=== PATIENT | female | born 1960 | race Caucasian/White ===

== ENCOUNTER 2017-06-04 20:44 | Emergency (ER) | payer OTHER ==
[~2017-06-04] VITALS: Ht 152.4 cm; Wt 74.8 kg
[2017-06-04 21:17] LABS: ABSOLUTE EOSINOPHILS 0.2 thou/uL (0.0-0.7); ABSOLUTE LYMPHOCYTES 2.1 thou/uL (0.8-5.3); ABSOLUTE MONOCYTES 0.4 thou/uL (0.0-1.2); ABSOLUTE NEUTROPHILS 2.5 thou/uL (1.6-8.1); BASOPHILS 0.7 %; EOSINOPHILS 4.2 %; HEMATOCRIT 41.8 % (37.0-47.0); HEMOGLOBIN 14.1 gm/dL (12.0-15.0); MCH 30.2 pg (26.0-34.0); MCHC 33.7 g/dL (28.0-37.0); MCV 89.5 fL (80.0-100.0); MONOCYTES 7.6 %; MPV 9.7 fl. (7.2-11.1); NUCLEATED RBCS 0 /100WBC; PLATELET COUNT* 186 thou/uL (150-400); POLYS 47.5 %; RBC 4.67 mil/uL (4.20-5.00); RDW-CV 13.5 % (10.5-14.5); WBC 5.2 thou/uL (4.0-11.0)
[2017-06-04 21:25] LABS: ANION GAP 8 mmol/L (7-16); BUN 14 mg/dL (7-18); CALCIUM 9.9 mg/dL (8.5-10.1); CHLORIDE 102 mmol/L (98-107); CO2 30 mmol/L (21-32); CREATININE 0.9 mg/dL (0.6-1.3); GLUCOSE 101 mg/dL (70-99); POTASSIUM 3.7 mmol/L (3.5-5.1); SODIUM 140 mmol/L (136-145)
[2017-06-04 21:32] LABS: ALBUMIN 3.5 g/dL (3.4-5.0); ALKALINE PHOSPHATASE 137 U/L (46-116); LIPASE 135 U/L (73-393); SGOT 23 U/L (15-37); SGPT 32 U/L (30-65); TOTAL BILIRUBIN 0.6 mg/dL (<0.1-1.0); TROPONIN-I LEVEL <0.06 ng/mL (<0.06)
[2017-06-04 22:00] LABS: URINE BILIRUBIN NEGATIVE (Negative); URINE BLOOD NEGATIVE (Negative); URINE CLARITY CLEAR; URINE COLOR YELLOW; URINE GLUCOSE-RANDOM NEGATIVE (Negative); URINE KETONES NEGATIVE (Negative); URINE LEUKOCYTES-REFLEX NEGATIVE (Negative); URINE NITRITE-REFLEX NEGATIVE (Negative); URINE PROTEIN NEGATIVE (Negative); URINE UROBILINOGEN 0.2 E.U./dl (0.2-1.0)
[2017-06-04 22:09] LABS: AMP/METHAMP POSITIVE (Negative); BARBITURATES Negative (Negative); BENZODIAZEPINES Negative (Negative); COCAINE Negative (Negative); METHADONE Negative (Negative); OPIATES Negative (Negative); PCP Negative (Negative); THC POSITIVE (Negative)
[2017-06-04] MEDS ORDERED: ZOFRAN ODT4 MG PO (23:06)
[2017-06-04] MEDS ORDERED: ANTIVERT25 MG PO (23:06)
[2017-06-04 23:15] VITALS: BP 161/73
--- NOTE | 2017-06-05 15:26 | EKG ---
[place] [address] ELECTROCARDIOGRAM REPORT Name: DON BAUTISTA Room: [facility]#: [id number] Admission: 06/04/17 Attend Phys: Discharge: 06/04/17 Date of : 60 Report #: [id number] THIS REPORT FOR: //name// [facility] ED Test Date: 2017-06-04 Test Time: 21:20:36 Pat Name: DON BAUTISTA Department: Room: Gender: F Unit Technician: DAMIAN Rapp : 1960 Requested By: Dianelys Estevez Order Number: [id number] MD: William Bhakta Measurements Intervals [place] Rate: 66 P: -21 MS: 150 QRS: -23 QRSD: 95 T: 19 QT: 405 QTc: 425 Interpretive Statements Sinus rhythm Borderline left axis deviation Anteroseptal infarct, age indeterminate No previous ECG available for comparison Electronically Signed On 06-05-2017 15:25:59 [employer] by William Bhakta [email or web address] <ELECTRONICALLY SIGNED> By: William Bhakta MD, [facility] 06/05/17 1525 19 19 William Bhakta MD, FAC /EPI
== END 2017-06-04 23:17 | disposition home or self-care (01) ==
LOC: M.ERS 20:44
PROVIDERS: Physician Assistant
DX: R42 Dizziness and giddiness (principal); Z88.1 Allergy status to other antibiotic agents

== ENCOUNTER 2019-07-01 07:41 | Inpatient (IN) | payer OTHER ==
[~2019-07-01] VITALS: Ht 152.4 cm; Wt 91.6 kg
--- NOTE | ~2019-07-01 | CON ---
[address] [address] CONSULTATION Name: DON BAUTISTA Room: [address] IN [facility]#: [id number] Admission: 07/01/19 Attend Phys: Alexi Rivera Discharge: Date of : 60 Report #: [id number] THIS REPORT FOR: //name// cc: RAZ Fermin family physician/PCP RAZ Fermin family physician/PCP ~ THIS REPORT FOR: //name// CC: RAZ physician/PCP Alexi Bolanos HISTORY OF PRESENT ILLNESS: This is a pleasant 59-year-old female with past medical history of prediabetes, obesity, and gastroesophageal reflux disease who is presenting for evaluation. The patient reports intermittent epigastric discomfort for the last few months. The pain seems to be worse after eating food. There is no specific relationship to bowel movements. She denies any significant pain, nausea, vomiting, hematemesis, hematochezia, weight loss or other alarm symptoms. The GI service has been consulted for iron deficiency anemia that was noted during the admission. The patient does report intermittent vaginal bleeding. PAST MEDICAL HISTORY: Nonsignificant. PAST SURGICAL HISTORY: The patient had a cholecystectomy. SOCIAL HISTORY: She denies smoking, alcohol or recreational drug use, but she quit smoking recently and reports about a 10-pound weight gain since then. FAMILY HISTORY: No family history of colon cancer or Smith related neoplasia. PHYSICAL EXAMINATION: VITAL SIGNS: Temperature 36.8, pulse rate 79, blood pressure 129/50, pulse ox 99% on room air. GENERAL: The patient is alert, awake, oriented x 3. HEENT: Pupils are equal, round, reactive to light and accommodation. Mucous membranes are moist. There is no congestion. LUNGS: Clear to auscultation bilaterally. CARDIOVASCULAR: Rate and rhythm regular. S1, S2 present. ABDOMEN: Soft. There is no distention, guarding or rigidity. EXTREMITIES: Warm and well perfused. There is no edema. SKIN: Warm and dry. LABORATORY DATA: Hemoglobin on presentation 6.3, hematocrit 20.4, platelet count 316,000. WBC count 5.8. INR 1.1. Sodium 142, potassium 4.1, chloride 108, bicarbonate 27, BUN 10, creatinine 0.9. Iron saturation 2%. Total bilirubin 0.3, AST 21, ALT 26, alkaline phosphatase 133. ASSESSMENT AND PLAN: Pleasant 59-year-old female with severe iron deficiency anemia, no history of endoscopic evaluation. We will proceed with EGD and colonoscopy tomorrow, put the patient on clear liquid diet today. Further recommendations will be based on the results of the endoscopy. By: 1202 [id number] Jones MD /geronimo
--- NOTE | ~2019-07-01 | PROC ---
[address] [address] PROCEDURE REPORT Name: DON BAUTISTA Room: [address] IN .R.#: [id number] Admission: 07/01/19 Attend Phys: Alexi Rivera Discharge: 07/05/19 Date of : 60 Report #: [id number] THIS REPORT FOR: //name// cc: RAZ - No family physician/PCP FAM - No family physician/PCP ~ THIS REPORT FOR: //name// For GI report, please see the Provation report in Perceptive 7 content. By: 1244Medical Records Staff [facility] /JOSEPH
--- NOTE | ~2019-07-01 | EKG ---
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
[~2019-07-01 07:41] MED LIST: ANTIVERT25 MG PO; ZOFRAN ODT4 MG PO
[2019-07-01 07:43] VITALS: BP 120/63
[2019-07-01] MEDS ORDERED: OMEPRAZOLE 20 M20 M1 PO (07:49)
[2019-07-01 08:11] LABS: ABSOLUTE EOSINOPHILS 0.2 thou/uL (0.0-0.7); ABSOLUTE LYMPHOCYTES 2.1 thou/uL (0.8-5.3); ABSOLUTE MONOCYTES 0.3 thou/uL (0.0-1.2); ABSOLUTE NEUTROPHILS 3.1 thou/uL (1.6-8.1); BASOPHILS 0.7 %; EOSINOPHILS 3.6 %; HEMATOCRIT 20.4 % (37.0-47.0); LYMPHOCYTES 36.8 %; MCHC 30.9 g/dL (28.0-37.0); MCV 67.8 fL (80.0-100.0); MONOCYTES 5.9 %; MPV 7.7 fl. (7.2-11.1); NUCLEATED RBCS 0 /100WBC; PLATELET COUNT* 316 thou/uL (150-400); RBC 3.02 mil/uL (4.20-5.00); RDW-CV 18.9 % (10.5-14.5); WBC 5.8 thou/uL (4.0-11.0)
[2019-07-01 08:12] LABS: HEMOGLOBIN 6.3 gm/dL (12.0-15.0)
[2019-07-01 08:18] LABS: CALCIUM 8.1 mg/dL (8.5-10.1); CREATININE 1.2 mg/dL (0.6-1.3); POTASSIUM 3.5 mmol/L (3.5-5.1)
[2019-07-01 08:28] LABS: ALBUMIN 3.3 g/dL (3.4-5.0); MAGNESIUM 1.9 mg/dL (1.8-2.4); TOTAL BILIRUBIN 0.3 mg/dL (<0.1-1.0); TOTAL PROTEIN 6.9 g/dL (6.4-8.2)
[2019-07-01 08:43] LABS: ANISOCYTOSIS 1+; HYPOCHROMASIA 2+; MICROCYTES 2+; PLATELET ESTIMATE ADEQUATE
[2019-07-01 12:46] LABS: CHOLESTEROL 178 mg/dL (<200); HDL CHOLESTEROL 51 mg/dL (>40); LDL CHOLESTEROL 107 mg/dL (<100); MAGNESIUM 1.9 mg/dL (1.8-2.4); SERUM ASSESSMENT CLEAR; TC:HDL 3.5 Ratio (Not establshd); TRIGLYCERIDE 103 mg/dL (<150); VLDL 21 mg/dL (<40)
[2019-07-01 13:54] LABS: HEMATOCRIT 23.8 % (37.0-47.0); HEMOGLOBIN 7.5 gm/dL (12.0-15.0)
[2019-07-01 14:04] VITALS: BP 151/70
[2019-07-01 14:58] VITALS: BP 148/72
[2019-07-01 15:10] VITALS: BP 134/69
--- NOTE | 2019-07-01 16:42 | 2DMMODE ---
[place] [address] 2 D/M-MODE ECHOCARDIOGRAM Name: DON BAUTISTA Tiffany Room: [address] IN .R.#: [id number] Admission: 07/01/19 Attend Phys: Alexi kaiser Sa Discharge: Date of : 60 Date of Service: 07/01/19 1641 Report #: [id number] THIS REPORT FOR: cc: RAZ - No family physician/PCP RAZ - No family physician/PCP Mariusz Chance MD [facility] THIS REPORT FOR: //name// APPROVED REPORT Study performed: 07/01/2019 15:14:26 EXAM: Comprehensive 2D, Doppler, and color-flow Echocardiogram Patient Location: Bedside BSA: 1.85 HR: 80 bpm BP: 151/70 mmHg Other Information Study Quality: Fair Indications Chest Pain 2D Dimensions IVSd: 13.39 (7-11mm) LVOT Diam: 18.26 (18-24mm) LVDd: 40.96 mm PWd: 10.97 (7-11mm) Ascending Ao: 25.97 (22-36mm) LVDs: 30.05 (25-40mm) Aortic Root: 26.06 mm Volumes Left Atrial Volume (Systole) LA ESV Index: 42.50 mL/m2 Aortic Valve AoV Peak Erik.: 1.65 m/s AO Peak Gr.: 10.89 mmHg LVOT Max P.52 mmHg AO Mean Gr.: 6.01 mmHg LVOT Mean P.88 mmHg LVOT Max V: 0.94 m/s AO V2 VTI: 32.67 cm LVOT Mean V: 0.64 m/s GUILLERMO (VTI): 1.59 cm2 LVOT V1 VTI: 19.90 [place] [address] 2 D/M-MODE ECHOCARDIOGRAM Name: DON BAUTISTA Room: [address] IN [facility]#: [id number] Admission: 07/01/19 Attend Phys: Alexi kaiser Sa Discharge: Date of : 60 Date of Service: 07/01/19 1641 Report #: [id number] Mitral Valve E/A Ratio: 1.07 MV Decel. Time: 238.27 ms MV E Max Erik.: 1.10 m/s MV PHT: 69.10 ms MVA (PHT): 3.18 cm2 TDI E/Lateral E': 13.75 E/Medial E': 12.22 Medial E' Erik.: 0.09 m/s Lateral E' Erik.: 0.08 m/s Pulmonary Valve PV Peak Erik.: 1.22 m/s PV Peak Gr.: 5.95 mmHg Tricuspid Valve RAP Estimate: 5.00 mmHg TR Peak Gr.: 29.98 mmHg RVSP: 34.98 mmHg PA Pressure: 34.98 mmHg Left Ventricle The left ventricle is normal size. There is normal LV segmental wall motion. Mild concentric left ventricular hypertrophy. Left ventricular systolic function is normal. The left ventricular ejection fraction is within the normal range. LVEF is 60-65%. Grade I - abnormal relaxation pattern. Right Ventricle The right ventricle is normal size. The right ventricular systolic function is normal. Atria Left atrium is mildly dilated. The right atrium size is normal. Aortic Valve The aortic valve is normal in structure. No aortic regurgitation is present. There is no aortic valvular stenosis. Mitral Valve The mitral valve is normal in structure. There is no mitral valve regurgitation noted. No evidence of mitral valve stenosis. Tricuspid Valve The tricuspid valve is normal in structure. Trace tricuspid regurgitation. estimated pa pressure 35 [place] [address] 2 D/M-MODE ECHOCARDIOGRAM Name: DON BAUTISTA Room: [address]#: [id number] Admission: 07/01/19 Attend Phys: Alexi kaiser Sa Discharge: Date of : 60 Date of Service: 07/01/19 1641 Report #: [id number] Pulmonic Valve Pulmonic valve is not well visualized. There is no pulmonic valvular regurgitation. Great Vessels The aortic root is normal in size. IVC is normal in size and collapses >50% with inspiration. Pericardium There is no pericardial effusion. <Conclusion> Mild concentric left ventricular hypertrophy. LVEF is 60-65%. Left atrium is mildly dilated. <ELECTRONICALLY SIGNED> By: Mariusz Chance MD, FACC 07/01/191640 40 40 Mariusz Chance MD, FACC /INF
[2019-07-01 19:50] VITALS: BP 134/58
[2019-07-02] VITALS (7 sets, daily range): BP systolic 119–142; BP diastolic 50–81
[2019-07-02 02:10] LABS: GLYCOHEMOGLOBIN (HGB A1C) 6.2 % (4.8-5.6)
[2019-07-02 04:59] LABS: HEMATOCRIT 23.2 % (37.0-47.0); HEMOGLOBIN 7.3 gm/dL (12.0-15.0); MCH 22.7 pg (26.0-34.0); MCHC 31.7 g/dL (28.0-37.0); MCV 71.6 fL (80.0-100.0); MPV 7.5 fl. (7.2-11.1); RBC 3.23 mil/uL (4.20-5.00); RDW-CV 21.9 % (10.5-14.5); WBC 6.8 thou/uL (4.0-11.0)
[2019-07-02 05:09] LABS: CALCIUM 7.8 mg/dL (8.5-10.1); CREATININE 0.9 mg/dL (0.6-1.3); POTASSIUM 4.1 mmol/L (3.5-5.1)
[2019-07-03] VITALS (7 sets, daily range): BP systolic 113–160; BP diastolic 51–64
[2019-07-04 00:55] VITALS: BP 154/78
[2019-07-04 04:00] VITALS: BP 159/66
[2019-07-04 06:05] LABS: AMP/METHAMP POSITIVE (Negative); BARBITURATES Negative (Negative); BENZODIAZEPINES Negative (Negative); COCAINE Negative (Negative); METHADONE Negative (Negative); OPIATES POSITIVE (Negative); PCP Negative (Negative); THC Negative (Negative)
[2019-07-04 06:13] LABS: ABSOLUTE EOSINOPHILS 0.2 thou/uL (0.0-0.7); ABSOLUTE LYMPHOCYTES 1.2 thou/uL (0.8-5.3); ABSOLUTE MONOCYTES 0.5 thou/uL (0.0-1.2); ABSOLUTE NEUTROPHILS 8.1 thou/uL (1.6-8.1); BASOPHILS 0.5 %; EOSINOPHILS 1.5 %; HEMATOCRIT 24.2 % (37.0-47.0); HEMOGLOBIN 7.8 gm/dL (12.0-15.0); MCH 23.3 pg (26.0-34.0); MCHC 32.1 g/dL (28.0-37.0); MCV 72.5 fL (80.0-100.0); MONOCYTES 4.6 %; MPV 7.8 fl. (7.2-11.1); NUCLEATED RBCS 0 /100WBC; PLATELET COUNT* 289 thou/uL (150-400); POLYS 81.4 %; RBC 3.34 mil/uL (4.20-5.00); RDW-CV 22.1 % (10.5-14.5); WBC 9.9 thou/uL (4.0-11.0)
[2019-07-04 06:30] LABS: CALCIUM 8.1 mg/dL (8.5-10.1); CREATININE 0.8 mg/dL (0.6-1.3); POTASSIUM 3.7 mmol/L (3.5-5.1)
[2019-07-04 07:24] LABS: PLATELET ESTIMATE ADEQUATE
[2019-07-04 07:25] LABS: ANISOCYTOSIS 1+; HYPOCHROMASIA 1+; MICROCYTES 1+; OVALOCYTES 1+; POIKILOCYTOSIS 1+; POLYCHROMASIA 1+
[2019-07-04 08:00] VITALS: BP 178/79
[2019-07-04 15:20] VITALS: BP 150/69
[2019-07-04 15:36] VITALS: BP 118/50
[2019-07-04 20:00] VITALS: BP 145/65
[2019-07-05] VITALS: BP 150/62
[2019-07-05 04:00] VITALS: BP 155/64
[2019-07-05 08:00] VITALS: BP 142/75
--- NOTE | 2019-07-05 10:53 | CON ---
[address] [address] CONSULTATION Name: DON ABUTISTA Tiffany Room: [address] IN ..#: [id number] Admission: 07/01/19 Attend Phys: Alexi Rivera Discharge: Date of : 60 Report #: [id number] THIS REPORT FOR: //name// cc: RAZ Fermin family physician/PCP RAZ Fermin family physician/PCP ~ THIS REPORT FOR: //name// CC: RAZ physician/PCP Alexi Bolanos DATE OF SERVICE: 07/01/2019 CARDIOLOGY CONSULTATION HISTORY OF PRESENT ILLNESS: The patient is a 59-year-old female who I was asked to see in the Emergency Room today after she complained of chest pain. The patient has no previous history of heart disease. She has been told in the past that she has anemia. Recently, she noticed shortness of breath when she exerts herself. She has had some edema. She also notes in the past several weeks, she has had pressure in the left side of chest behind her left breast. It is not related to exertion or meals. There is no radiation of the pain. She has had no blood in her stool or vomiting. She has had no cough or fever. Because of chest discomfort, her brought her to the Emergency Room, and she was admitted for further evaluation and treatment. PAST MEDICAL HISTORY: Significant for cholecystectomy, fractured arm that required surgery. She has been told in the past, her cholesterol was elevated. She has had a history of high blood pressure, borderline diabetes. MEDICATIONS: She is on no medications. ALLERGIES: SHE HAS AN ALLERGY TO VICODIN, ERYTHROMYCIN. FAMILY HISTORY: Her uncle had a stent. SOCIAL HISTORY: She is . She and her live in [place]. Smoked half pack of cigarettes a day until 2 months ago and then quit. No alcohol abuse. REVIEW OF SYSTEMS: She is overweight, being 5 feet, 180 pounds. No history of stroke, asthma, peptic ulcer disease, liver disease, kidney disease, cancer, chronic skin condition, psychiatric illness. PHYSICAL EXAMINATION: GENERAL: Revealed a middle-aged male, lying in bed. She appeared in no acute distress. VITAL SIGNS: She had a blood pressure of 130/60, pulse 80, she is afebrile. HEENT: She was anicteric. Conjunctivae pink. Mucous membranes are moist. NECK: Veins do not appear distended. No carotid bruits. Neck is supple. CHEST: Clear to auscultation. CARDIOVASCULAR: Regular rate and rhythm without rub. ABDOMEN: Obese. EXTREMITIES: Had no edema. Dorsalis pedis pulse 1+. SKIN: Cool and dry. NEUROLOGIC: Nonfocal. RADIOLOGICAL DATA: Her ECG showed a sinus rhythm with nonspecific ST and T-wave change. On her workup in the Emergency Room, she had a portable chest x-ray that showed a large hiatal hernia, normal heart size, clear lung turner. LABORATORY WORK: Sodium 145, potassium 3.5, creatinine 1.2. Liver function studies were normal. Troponin 0.32, it is now 0.8. Her cholesterol is 178, triglyceride 103, HDL 51, LDL 107. Her percent saturation of iron is only 2%, ferritin 6, white blood cell count 5.8, hemoglobin 7.5, hematocrit 23.8, platelet count 316,000. Her urinalysis was negative for protein. IMPRESSION AND RECOMMENDATIONS: 1. Chest pain. Atypical for angina. The patient has borderline troponin noted. I would recommend an echocardiogram. 2. Anemia. Appears to be iron deficient. No history of bleeding. Consider gastrointestinal workup. 3. Glucose intolerance. 4. Previous tobacco abuse. 5. Obesity. <ELECTRONICALLY SIGNED> By: Mariusz Chance MD, [facility] 07/05/19 1053 1430 [id number] Chance MD, FACC /nt
[2019-07-05 11:17] VITALS: BP 114/45
[2019-07-05 14:46] VITALS: BP 114/45
[2019-07-05] MEDS ORDERED: METFORMIN HCL500 M3 PO (14:51)
[2019-07-05 14:53] LABS: ABSOLUTE EOSINOPHILS 0.2 thou/uL (0.0-0.7); ABSOLUTE LYMPHOCYTES 1.6 thou/uL (0.8-5.3); ABSOLUTE MONOCYTES 0.7 thou/uL (0.0-1.2); ABSOLUTE NEUTROPHILS 5.7 thou/uL (1.6-8.1); BASOPHILS 0.4 %; HEMOGLOBIN 7.7 gm/dL (12.0-15.0); LYMPHOCYTES 19.2 %; MCH 23.5 pg (26.0-34.0); MCV 73.5 fL (80.0-100.0); MONOCYTES 8.3 %; MPV 8.2 fl. (7.2-11.1); NUCLEATED RBCS 0 /100WBC; PLATELET COUNT* 267 thou/uL (150-400); POLYS 70.1 %; RBC 3.26 mil/uL (4.20-5.00); RDW-CV 22.7 % (10.5-14.5); WBC 8.2 thou/uL (4.0-11.0)
[2019-07-05] MEDS ORDERED: PROTONIX40 M2 PO (14:56)
[2019-07-05] MEDS ORDERED: MYLANTA MAXIMU355 ML PO (14:58)
[2019-07-05] MEDS ORDERED: SLOW FE142 MG PO (14:58)
[2019-07-05 15:01] LABS: CALCIUM 8.3 mg/dL (8.5-10.1); CREATININE 0.9 mg/dL (0.6-1.3); POTASSIUM 3.9 mmol/L (3.5-5.1)
--- NOTE | 2019-07-05 16:07 | PATH ---
[address] [address] PATHOLOGY RPT PROCEDURE Name: LILYFERNANDA Tiffany Room: [address] IN [facility]#: [id number] Admission: 07/01/19 Date of : 60 Discharge: 07/05/19 Report #: [id number] Path Case #: [id number] [facility] Accession Number: [id number] . 01 Material submitted: . PART A: duodenum - DUODENAL BIOPSY PART B: stomach - GASTRIC BIOPSY PART C: colon - DESCENDING COLON POLYP. Modifiers: descending . 01 Clinical history: . Anemia, angina R/O celiac . 02 Diagnosis: A. Duodenal biopsy: - Normal duodenal/small intestinal mucosa. . B. Gastric biopsy: - Mild non-specific chronic gastritis, negative for Helicobacter pylori organisms and dysplasia. . C. Descending colon polyp: - Tubular adenoma, negative for high grade dysplasia. (ARABELLA/db; 07/05/2019) [facility] 07/05/2019 1157 Local . 02 Comment: Special stain on B: H. pylori immuno . 02 Electronically signed: . Jovany Garcia MD, Pathologist NPI- [id number] . 01 Gross description: . A. The specimen is received in formalin, labeled "Fernanda Bolden, duodenal biopsy". Received are four segments of pale cardona soft tissue ranging in size from 0.3 to 0.4 cm in maximum dimensions. The specimen is submitted entirely in cassette A1. . B. The specimen is received in formalin, labeled "Fernanda Bolden, gastric biopsy". Received is a segment of pale cardona soft tissue measuring 0.6 cm in maximum dimensions. The specimen is submitted entirely in cassette B1. . C. The specimen is received in formalin, labeled "Fernanda Bolden, descending colon polyp". Received is a segment of pale cardona soft tissue measuring 0.9 cm in maximum dimensions. The specimen is submitted entirely in cassette C1. (CAA; 07/04/2019) [place] [address] PATHOLOGY RPT PROCEDURE Name: FERNANDA BOLDEN Room: [address] IN [facility].#: [id number] Admission: 07/01/19 Date of : 60 Discharge: 07/05/19 Report #: [id number] Path Case #: [id number] QAC/QAC 07/04/2019 [facility] Local . 02 Pathologist provided ICD-10: K29.50, D12.4 . 02 CPT . 959687, 785515, 197839, J92484 Specimen Comment: A courtesy copy of this report has been sent to [phone] Specimen Comment: Report sent to Performed at: [address] [facility] [address], [place], [place] [id number] MD Nestor Rodriguez MD Phone: [phone] Performed at: [address] [facility] [address] [address], [place], [place] [id number] MD Jovany Garcia MD Phone: [phone]
[2019-07-05 16:18] LABS: ANISOCYTOSIS 2+; HYPOCHROMASIA 1+
== END 2019-07-05 15:15 | disposition home or self-care (01) | DRG 378 ==
LOC: M.ERS 07:41 → M.2W 08:26 → M.TBA-ER 08:26 → M.2W 15:10
PROVIDERS: Emergency Medicine Emergency Medical Services; Family Medicine; ADMIT Family Medicine
DX: K29.71 Gastritis, unspecified, with bleeding (principal); I24.8 Other forms of acute ischemic heart disease; D64.9 Anemia, unspecified; I10 Essential (primary) hypertension; R73.03 Prediabetes; E74.39 Other disorders of intestinal carbohydrate absorption; E66.9 Obesity, unspecified; K21.9 Gastro-esophageal reflux disease without esophagitis; R73.9 Hyperglycemia, unspecified; F15.10 Other stimulant abuse, uncomplicated; Z82.49 Family history of ischemic heart disease and other diseases of the circulatory system; Z90.49 Acquired absence of other specified parts of digestive tract; Z68.39 Body mass index [BMI] 39.0-39.9, adult; Z86.010 Personal history of colon polyps; Z87.891 Personal history of nicotine dependence; Z79.899 Other long term (current) drug therapy; Z88.5 Allergy status to narcotic agent; Z88.8 Allergy status to other drugs, medicaments and biological substances